=== PATIENT | female | born 1980 | race American Indian/Alaskan Native ===

== ENCOUNTER 2018-03-16 15:42 | Emergency (ER) | payer OTHER, MEDICAID ==
[2018-03-16] MEDS ORDERED: Lidocaine 2% Inj (20ml) IJ STA (16:00)
[2018-03-16] MEDS ORDERED: TDAP Vaccine 0.5 mL Syr IM ONE (16:00)
--- NOTE | 2018-03-16 16:13 | ED PDOC ---
Arrival/HPI - General Chief Complaint: Abnormal Skin Integrity Time Seen by Provider: 03/16/18 15:47 Historian: Patient - History of Present Illness Narrative History of Present Illness (Text): 03/16/18 16:10 37 year old female who presents to the emergency department complaining of pain and bleeding to left index finger. Patient states she was recycling when she pushed down on the garbage and cut her left index finger on a broken piece of glass. Patient does not know when her last tetanus shot was. Patient denies fevers, chills, headache, dizziness, chest pain, shortness of breath, dyspnea on exertion, cough, abdominal pain, nausea, vomiting, diarrhea, back pain, neck pain, or any other complaint. Time/Duration: Prior to Arrival Symptom Course: Unchanged Activities at Onset: Light Context: Home Past Medical History - Provider Review Nursing Documentation Reviewed: Yes - Psychiatric Hx Substance Use: No - Anesthesia Hx Anesthesia: No Hx Anesthesia Reactions: No Hx Malignant Hyperthermia: No Family/Social History - Physician Review Nursing Documentation Reviewed: Yes Family/Social History: No Known Family HX Smoking Status: Never Smoked Hx Alcohol Use: No Hx Substance Use: No Allergies/Home Meds Allergies/Adverse Reactions: Allergies No Known Allergies Allergy (Verified 03/16/18 15:50) Review of Systems - Review of Systems Constitutional: absent: Fevers Eyes: absent: Vision Changes Respiratory: absent: SOB, Cough Cardiovascular: absent: Chest Pain Gastrointestinal: absent: Diarrhea, Nausea, Vomiting Genitourinary Female: absent: Dysuria Musculoskeletal: Other (pain and bleeding to the left index finger ). absent: Back Pain, Neck Pain Skin: absent: Rash Neurological: absent: Headache, Dizziness Psychiatric: absent: Anxiety Physical Exam Vital Signs Reviewed: Yes Vital Signs Temp Pulse Resp BP Pulse Ox 03/16/18 16:07 98.2 F 83 16 150/90 100 Temperature: Afebrile Blood Pressure: Normal Pulse: Regular Respiratory Rate: Normal Appearance: Positive for: Well-Appearing, Non-Toxic, Comfortable Pain Distress: None Mental Status: Positive for: Alert and Oriented X 3 - Systems Exam Head: Present: Atraumatic, Normocephalic Pupils: Present: PERRL Extroacular Muscles: Present: EOMI Conjunctiva: Present: Normal Mouth: Present: Moist Mucous Membranes Neck: Present: Normal Range of Motion Upper Extremity: Present: Other (1.5 elliptical laceration to the dorsum of the left index finger) Lower Extremity: Present: Normal Inspection. No: Edema Neurological: Present: GCS=15, CN II-XII Intact, Speech Normal, Gait Normal Psychiatric: Present: Alert, Oriented x 3, Normal Insight, Normal Concentration Medical Decision Making ED Course and Treatment: 03/16/18 16:15 Impression: 37 year old female who presents to the emergency department complaining of pain and bleeding to the left index finger. Plan: -- Boostrix Vaccine -- Lidocaine -- Tylenol -- left hand 2nd digit X-ray Progress Notes: 03/16/18 17:15 Hand X-ray reviewed, shows: IMPRESSION: Negative study 03/16/18 18:09 - RAD Interpretation Radiology Orders: 03/16/18 16:00 HAND LEFT 2ND DIGIT (FINGER) [RAD] Stat - Medication Orders Current Medication Orders: Discontinued Medications Acetaminophen (Tylenol 325mg Tab) 650 mg PO STAT STA Stop: 03/16/18 16:01 Lidocaine HCl (Lidocaine 2% 20ml Vial) 5 ml IJ ONCE STA Stop: 03/16/18 16:01 Tetanus/Reduced Diphtheria/Acell Pertussis (Boostrix Vaccine Inj) 0.5 ml IM .ONCE ONE Stop: 03/16/18 16:01 - Procedure PROCEDURE NOTE (Text): 03/16/18 16:46 PROCEDURE: LACERATION REPAIR Performed by the emergency provider Location: dorsum of the left index finger Length: 1.5cm Description: clean wound edges, no foreign bodies Distal CMS: Normal. No deficits. Neurovascularly intact. Anesthesia: digital block technique Preparation: The wound was cleaned with NS and [place]. The area was prepped and draped in the usual sterile fashion. Exploration: The wound was explored and no foreign bodies were found. Procedure: The wound was closed with 4-0 ethilon sutures. There was good approximation. In total, 5 sutures were placed. Post-Procedure: Good closure and hemostasis. The patient tolerated the procedure well and there were no complications. CSM remains intact. Post procedure dressing applied. - Scribe Statement The provider has reviewed the documentation as recorded by the Keena Subramanian Provider Scribe Attestation: All medical record entries made by the Scribe were at my direction and personally dictated by me. I have reviewed the chart and agree that the record accurately reflects my personal performance of the history, physical exam, medical decision making, and the department course for this patient. I have also personally directed, reviewed, and agree with the discharge instructions and disposition. Disposition/Present on Arrival - Present on Arrival Any Indicators Present on Arrival: No History of DVT/PE: No History of Uncontrolled Diabetes: No Urinary Catheter: No History of Decub. Ulcer: No History Surgical Site Infection Following: None - Disposition Have Diagnosis and Disposition been Completed?: Yes Diagnosis: Finger laceration Disposition: HOME/ ROUTINE Disposition Time: 17:05 Patient Plan: Discharge Condition: GOOD Discharge Instructions (ExitCare): Laceration Repair, Laceration Repair With Stitches (DC) Additional Instructions: Follow-up with PMD within 2 days. Return in 7-10 days to PMD for suture removal. Return to ED if condition worsens. Keep stitches clean and dry Referrals: Shyann Jean OIL INSPECTOR [Primary Care Provider] - Follow up with primary Forms: [employer] Connect ([place]ian)
[2018-03-16 16:22] VITALS: TEMP 98.2; O2SAT 100; BMI 21.2
[2018-03-16] MEDS ORDERED: Lidocaine 1% 5ml Abboject ONE (16:35)
[2018-03-16] MEDS ORDERED: Bacitracin Ointment 30 GM TUBE TOP ONE (17:04)
[2018-03-16] MEDS ORDERED: Bacitracin 500 Units/gm Oint Foilpak UD TOP ONE (17:04)
--- NOTE | 2018-03-16 17:06 | RAD ---
PROCEDURE: Left Hand and 2nd digit radiographs. HISTORY: laceration, r/o foreign body COMPARISON: None. FINDINGS: BONES: Normal. No fracture. JOINTS: Normal. No osteoarthritic changes. SOFT TISSUES: No evidence of foreign body OTHER FINDINGS: None. IMPRESSION: Negative study
[2018-03-16 17:34] VITALS: BP 137/81; PULSE 82; RESP 18
== END 2018-03-16 17:32 | disposition home or self-care (01) ==
LOC: ED 15:42
DX: S61.211A Laceration without foreign body of left index finger without damage to nail, initial encounter (principal); W25.XXXA Contact with sharp glass, initial encounter; Y92.89 Other specified places as the place of occurrence of the external cause; Y99.8 Other external cause status; Z23 Encounter for immunization